=== PATIENT | male | born 1955 | race Caucasian/White ===

== ENCOUNTER 2017-03-20 06:57 | Day surgery (SDC) | payer OTHER ==
[2017-03-19 11:29] VITALS: BMI 27.6
[2017-03-20 08:34] VITALS: TEMP 97.5
[2017-03-20 09:35] VITALS: BP 120/85; PULSE 76
--- NOTE | 2017-03-23 12:58 | PATH ---
Surgical Pathology Report Patient Name: WANDA EDGAR [facility]. Rec. #: [id number] /Age/Gender: 1955 (Age: 62) / M Account: [id number] Location: U-ENDOSCOPY Taken: 03/20/2017 Received: 03/20/2017 Reported: 03/23/2017 Physicians: Dg Burrows M.D. Specimen(s) Received BX SIGMOID COLON POLYPS Clinical History Screening Polyps Final Diagnosis SIGMOID, BIOPSY: POLYPOID COLONIC MUCOSA WITH PROMINENT LYMPHOID AGGREGATE. Electronically Signed Amanda Corrales M.D. Gross Description Received in formalin, labeled "biopsy sigmoid" are 4 schofield, irregular portions of soft tissue ranging from 0.1-0.6 cm. in greatest dimension. The specimens are submitted in toto in one cassette. 03/20/201703/20/2017
== END 2017-03-20 09:20 | disposition home or self-care (01) ==
LOC: JASU-ENDO 06:57
PROVIDERS: ATTEND Internal Medicine Gastroenterology
PROC: 0DBN8ZX Excision of Sigmoid Colon, Via Natural or Artificial Opening Endoscopic, Diagnostic (ICD-10-PCS; principal; 2017-03-20 08:00)
DX: Z12.11 Encounter for screening for malignant neoplasm of colon (principal); D12.5 Benign neoplasm of sigmoid colon; K64.8 Other hemorrhoids
CPT/HCPCS: 88305-TC